=== PATIENT | female | born 1980 | race Caucasian/White ===

== ENCOUNTER 2025-07-31 08:29 | Emergency (ER) | payer OTHER, SELFPAY ==
[2025-07-31 08:42] VITALS: BP 92/62; PULSE 80; RESP 16; TEMP 36.6; O2SAT 97; BMI 16.6
--- NOTE | 2025-07-31 08:53 | EKG_ITS ---
[facility] Test Date: 2025-07-31 Pat Name: YOHANA SOLANO Department: Room: - Gender: Female [place]: : 1980 Requested By: Felix Mclain (AYDIN) Order Number: [id number] Reading MD: Felix Mclain (QUALITY MANAGER) Measurements Intervals [place] Rate: 67 P: 74 [place]: 143 QRS: 74 QRSD: 131 T: 33 QT: 435 QTc: 461 Interpretive Statements SINUS RHYTHM WITH SINUS ARRHYTHMIA POSSIBLE LEFT ATRIAL ENLARGEMENT [-0.1mV P-WAVE IN V1/V2] RIGHT BUNDLE BRANCH BLOCK [120+ ms QRS DURATION, UPRIGHT V1, 40+ ms S IN I/aVL/V4/V5/V6] No previous ECG available for comparison /[id number]/[email or web address]/[id number].pdf
--- NOTE | 2025-07-31 08:53 | XR_ITS ---
Examination: PA lateral chest 2 views TECHNIQUE: Upright PA lateral chest 2 views Date and time: July 31, 2025 0857 hours, comparison January 19, 2024, January 25, 2019 INDICATIONS: Coughing 13 days. FINDINGS: Moderate hyperexpansion Stable 15 mm pulmonary nodule right upper lobe Normal heart size No pneumonia or pulmonary edema IMPRESSION: No interval pneumonia or pulmonary edema
--- NOTE | 2025-07-31 08:55 | EDRME_ITS ---
Rapid Medical Screening Exam [facility] Arrival date/time: 07/31/25 08:29 45-year-old female with history of RA presents to the emergency department today for complaints of cough, congestion and shortness of breath as well as generalized fatigue and weakness. Patient reports currently taking course of antibiotic Chief Complaint: Flu Like Symptoms Vital signs: Vital Signs Temperature 97.8 F 07/31/25 08:42 Pulse Rate 80 07/31/25 08:42 Respiratory Rate 16 07/31/25 08:42 Blood Pressure 92/62 07/31/25 08:42 Pulse Oximetry (%) 97 07/31/25 08:42 Oxygen Delivery Method Room Air 07/31/25 08:42
[2025-07-31 09:13] VITALS: BP 109/67; PULSE 60; RESP 17; TEMP 36.8; O2SAT 99
[2025-07-31 09:30] LABS: Basophils # (Auto) 0.1 Thou/mm3 (0.0-0.2); Basophils % (Auto) 1 % (0-2.5); Eosinophils # (Auto) 0.0 Thou/mm3 (0.0-0.5); Eosinophils % (Auto) 0 % (0-10); Hematocrit 40.0 % (36.0-46.0); Hemoglobin 14.0 g/dL (12.0-16.0); Immature Granulocytes Auto 0.06 Thou/mm3 (0.00-0.00); Lymphocytes # (Auto) 2.7 Thou/mm3 (1.0-4.8); Lymphocytes % (Auto) 22 % (10-50); Mean Corpuscular HGB Conc 35.0 g/dl (31.0-37.0); Mean Corpuscular Hemoglobin 31.1 pg (25.0-35.0); Mean Corpuscular Volume 89 fL (80-100); Monocytes # (Auto) 0.7 Thou/mm3 (0.0-0.8); Monocytes % (Auto) 6 % (0-12); Neutrophils # (Auto) 8.8 Thou/mm3 (1.8-7.7); Neutrophils % (Auto) 71 % (37-80); Nucleated Red Blood Cell # 0.00 Thou/mm3 (0.00-0.00); Nucleated Red Blood Cell % 0 /100 WBC (0); Platelet Count 281 Thou/mm3 (140-440); RDW Standard Deviation 38.9 fL (36.4-46.3); Red Blood Count 4.50 Miln/mm3 (4.00-5.20); White Blood Count 12.3 Thou/mm3 (3.6-11.0)
[2025-07-31 09:31] LABS: Strep A Rapid Negative (Negative)
[2025-07-31 09:32] LABS: Collection Type, Urine Clean Catch
[2025-07-31 09:38] LABS: Bilirubin,Urine Negative (Negative); Blood,Urine 1+ (Negative); Clarity,Urine Clear (Clear/Hazy); Color,Urine Yellow (Lt Yel-Yel); Culture Indicated,Urine Not Indicated; Glucose, Urine Negative (Negative); Ketones,Urine Negative (Negative); Leukocyte Esterase,Urine Negative (Negative); Nitrite,Urine Negative (Negative); PH,Urine 6.0 (5.0-7.0); Protein,Urine 1+ (Neg - Trace); RBC,Urine 4 /hpf (0-3); Specific Gravity,Urine 1.023 (1.001-1.035); Squamous Epithelial Cell,Urine 5 /hpf (0-5); Urobilinogen,Urine Negative mg/dL (0.0-1.0); WBC,Urine 1 /hpf (0-5)
[2025-07-31 09:42] LABS: HCG Qualitative,Urine Negative
--- NOTE | 2025-07-31 09:49 | PD.EDURI ---
Upper Respiratory Inf. RME/HPI General Chief Complaint: Flu Like Symptoms Stated Complaint: FLU LIKE SYMPTOMS Time Seen by Provider: 07/31/25 09:38 Arrival date/time: 07/31/25 08:29 RME / HPI RME / HPI Narrative: 07/31/25 08:29 45-year-old female with history of RA presents to the emergency department today for complaints of cough, congestion and shortness of breath as well as generalized fatigue and weakness. Patient reports currently taking course of antibiotic DR. SCHWARZ MAIN ED EVALUATION 45 year old female with history of rheumatoid arthritis presents to the ED for evaluation of URI symptoms beginning 12 days ago. Reportedly she first started with a fever, chills, sore throat, and itching between the ears which she took Claritin and Tylenol Cold for. Symptoms did not improve and now associated with shortness of breath. Says she consulted with her PCP 3 days ago who started her on a Zpack, 5-day course of 20mg Prednisone, and inhaler. However, states her symptoms remain unchanged. Current daily medications include: Hydroxychloroquine, Tizanidine, Gabapentin, stopped Lor over a year ago. Related Data Home Medications ?Medication ?Instructions ?Recorded ?Confirmed hydroxychloroquine [Plaquenil] 400 mg PO DAILY 12/09/19 12/12/19 pregabalin [Lyrica] 100 mg PO BID 12/09/19 12/12/19 tizanidine 4 mg PO BID 12/09/19 12/12/19 Previous Rx's ?Medication ?Instructions ?Recorded doxycycline monohydrate 100 mg 100 mg PO BID #10 caps 07/31/25 capsule mometasone 50 mcg/actuation nasal 2 spray intranasal QDAY #17 grams 07/31/25 spray (Allergy Nasal (mometasone)) Allergies Allergy/AdvReac Type Severity Reaction Status Date / Time amoxicillin Allergy Rash Verified 01/19/24 09:39 clavulanic acid (From Allergy Rash Verified 01/19/24 09:39 Augmentin) codeine Allergy nausea Verified 01/19/24 09:39 vomiting prednisone Allergy makes my Verified 01/19/24 09:39 body feel bad all over Review of Systems Review of Systems Systems Reviewed: All systems reviewed, normal except as documented Past Medical History Past Medical History MUSCULOSKELETAL: Positive Rheumatoid Arthritis OTHER HISTORY: Positive Autoimmune Disease (RHEUMATOID ARTHRITIS) Social History SMOKING STATUS: Current every day smoker SUBSTANCE USE: does not use ED Exam Narrative Physical exam: GENERAL APPEARANCE: alert and oriented x 4, well-developed, pale, thin, HEENT: Normocephalic, atraumatic; pupils equal, round, reactive to light; EOMI; mucous membranes pink, moist; oropharynx clear; clear rhinorrhea R>L, serous effusion bilateral TM NECK: Supple LUNGS: CTABL; no wheezes, no rales, no rhonchi HEART: Regular rate, regular rhythm; normal S1, S2; no murmurs ABDOMEN: non distended; normal BS; soft, no tenderness, no guarding, no rebound; no masses, no organomegaly, no hernia BACK: no CVA tenderness EXTREMITIES: atraumatic; no edema NEUROLOGIC: awake; alert and oriented x4; cranial nerves II-XII grossly intact; no focal sensory or motor deficits PSYCHIATRIC: appropriate mood and affect SKIN: warm, dry, normal color; no rashes Course Quality Measures none Orders Category Date Time Status Bedside COVID-19 Antigen Test NOW Care 07/31/25 08:53 Active Bedside Influenza A&B Antigen Test NOW Care 07/31/25 08:53 Completed EKG (ED ONLY) *Do not use* NOW Care 07/31/25 08:[address] chest wo con Stat Exams 07/31/25 10:59 Completed EKG (ED Only) Stat Exams 07/31/25 08:53 Draft XR chest 2V Stat Exams 07/31/25 08:53 Completed BNP [B-Type Natriuretic Peptide] Stat Lab 07/31/25 09:20 Completed CBC Stat Lab 07/31/25 09:20 Completed CMP [Comprehensive Metabolic Panel] Stat Lab 07/31/25 09:20 Completed D-Dimer Stat Lab 07/31/25 09:20 Completed HCG Qualitative,Urine Stat Lab 07/31/25 09:26 Completed Strep A Rapid Stat Lab 07/31/25 08:59 Completed Troponin I Stat Lab 07/31/25 09:20 Completed UA, C/S IF [Urinalysis, C/S if Indicated] Stat Lab 07/31/25 09:26 Completed Doxycycline [Vibramycin] Med 07/31/25 10:02 Discontinued 100 mg PO X1 ONE lorataDINE [Claritin] Med 07/31/25 10:02 Discontinued 10 mg PO X1 ONE Vital Signs Vital signs: Vital Signs Temperature 97.8 F 07/31/25 08:42 Pulse Rate 80 07/31/25 08:42 Respiratory Rate 16 07/31/25 08:42 Blood Pressure 92/62 07/31/25 08:42 Pulse Oximetry (%) 97 07/31/25 08:42 Oxygen Delivery Method Room Air 07/31/25 08:42 Pulse ox is 97% on room air which is adequate. Upper Respiratory Infection MDM Narrative MDM Narrative:: Jing Guillen am scribing for and in the presence of Dr. Schwarz. Patient data External records reviewed:: [facility] previous records (I reviewed ED visit on 01/19/2024 ) Clinical information provided by:: patient Social determinants that could affect healthcare access:: none Patient has the following chronic illnesses:: rheumatoid arthritis How is presenting disease/condition affected by chronic disease/condition?: uneffected by Evaluation data The following diagnostics were reviewed and interpreted by me:: lab results, radiology exam(s) and EKG tracing(s) (EKG @ 09:21 AM. NSR, rate 67, right bundle branch block. ) Lab and/or radiology exams considered but not ordered:: None Interpretation Summary: Ordering Physician: Chemo HUGHES)Felix NP Date of Service: 07/31/25 Procedure(s): XR chest 2V Accession Number(s): [id number] cc: Chemo HUGHES),Felix PERRIN; Mauro Flores MD; Cyrus Mayo MD~ Examination: PA lateral chest 2 views TECHNIQUE: Upright PA lateral chest 2 views Date and time: July 31, 2025 0857 hours, comparison January 19, 2024, January 25, 2019 INDICATIONS: Coughing 13 days. FINDINGS: Moderate hyperexpansion Stable 15 mm pulmonary nodule right upper lobe Normal heart size No pneumonia or pulmonary edema IMPRESSION: No interval pneumonia or pulmonary edema Dictated By: Mauro Flores MD Signed By: <Electronically signed by Mauro Flores MD in [place]> 07/31/25 0936 Ordering Physician: Vandana Schwarz MD Date of Service: 07/31/25 Procedure(s): CT chest wo con Accession Number(s): [id number] cc: Mauro Flores MD; Cyrus Mayo MD; Vandana Schwarz MD~ Examination: CT chest, without intravenous contrast. Sagittal and coronal 2-D reconstructions. Exam date and time: July 31, 2025 1150 hours, comparison March 14, 2024 INDICATIONS: Coughing today, history pulmonary nodules on CT chest March 14, 2024 CTDI:vol (mGy) 6.01 DLP: (mGycm) 239 Technique: Multiple 3.0 mm axial sections of the chest to been obtained. Bone and lung density settings are obtained. Sagittal and coronal 2-D reconstructions have been obtained. Low dose protocols were performed. One or more of the following dose reduction techniques were used; automated exposure control, adjustment of the mA and/or KV according to patient size, use of iterative reconstruction technique. Findings: 6 mm left thyroid nodule No thoracic aortic aneurysm dilatation Pulmonary artery segments are not enlarged. No paratracheal tracheobronchial or bronchopulmonary adenopathy. Stable 15 mm pulmonary nodule right upper lobe No new pulmonary nodules No pneumonia or pulmonary edema No visualized liver or splenic lesion Contracted gallbladder Kidneys partially visualized no hydronephrosis IMPRESSION: Stable 15 mm pulmonary nodule right upper lobe No pneumonia or pulmonary edema Dictated By: Mauro Flores MD Signed By: <Electronically signed by Mauro Flores MD in [place]> 07/31/25 1221 Medications / Prescriptions Medications or Prescriptions considered but not ordered:: None Medication administrations:: Medication Administration History Discontinued Medications Doxycycline Hyclate (Doxycycline 100 Mg Tablet) 100 mg PO X1 ONE Stop: 07/31/25 10:03 Last Admin: 07/31/25 10:17 Dose: 100 mg Documented By: PRIMITIVO Loratadine (Loratadine 10 Mg Tablet) 10 mg PO X1 ONE Stop: 07/31/25 10:03 Last Admin: 07/31/25 10:17 Dose: 10 mg Documented By: PRIMITIVO See above Consultations Consultation(s) initiated? (list below): No Diagnosis Upper Respiratory Differential Diagnosis: upper respiratory infection, viral infection, bronchitis, influenza and other (pneumonia ) Most likely diagnosis given after review of the tests above:: URI Allergic rhinitis Thyroid nodule Incidental lung nodule Admission Indicated Admission indicated?: not indicated Admission Request Was there a request for admission?: No Disposition Plan Disposition Plan: Discharge Discharge Attestation Discharge Attestation: The patient and all family members were given an opportunity to ask questions and understood the discharge instructions. Discharge instructions specifically effects, indications for sooner follow up or return to the emergency department, and the expected course of current diagnosis. Patient condition: Stable Discharge Plan Plan Patient Disposition: HOME (Self Care) Prescriptions/Referrals Prescriptions/Med Rec: New doxycycline monohydrate 100 mg capsule 100 mg PO BID Qty: 10 0RF mometasone [Allergy Nasal (mometasone)] 50 mcg/actuation spray,non-aerosol 2 spray intranasal QDAY Qty: 17 0RF Rx Instructions: administer into each nostril No Action pregabalin [Lyrica] 100 mg PO BID hydroxychloroquine [Plaquenil] 400 mg PO DAILY tizanidine 4 mg PO BID Referrals: Cyrus Mayo MD [Primary Care Provider] - In 1 week Problem List Clinical Impression: Upper respiratory infection, Allergic rhinitis, Thyroid nodule, Incidental lung nodule Patient/Caregiver Discharge Instructions Education Materials: Common Thyroid Problems, Nasal Allergies: Related Problems, Preventing Common Respiratory ..., ED Pulmonary Nodule, Solitary Additional Instructions: The pulmonary nodule seen on your CT scan has been stable since your previous CT scan from 03/2024. Follow up with your doctor to continue monitoring. A thyroid nodule was also noted. Follow up with your doctor for continued management and possible ultrasound. Print Language: Emir[place] Stand Alone Forms: Callie Award Info., Patient Portal Info Letter
[2025-07-31 09:51] LABS: Alanine Aminotransferase 28 U/L (10-49); Albumin, Serum 4.7 gm/dL (3.5-5.0); Albumin/Globulin Ratio 2.2 (1.2-2.2); Alkaline Phosphatase 90 U/L (46-116); Anion Gap 10 (7-16); Aspartate Amino Transferase 26 U/L (0-34); BUN/Creatinine Ratio 14 Ratio (12-20); Bilirubin,Total 0.4 mg/dL (0.3-1.2); Blood Urea Nitrogen 11 mg/dL (9-23); Calcium 9.7 mg/dL (8.3-10.6); Calcium (Corrected) 9.7 mg/dL (8.5-10.1); Carbon Dioxide 27.1 mMol/L (20.0-31.0); Chloride 104 mMol/L (98-107); Creatinine (Component) 0.8 mg/dL (0.6-1.3); Estimated Creatinine Clearance 68.8 mL/min (>60); Globulin 2.1 gm/dL (2.3-3.5); Glucose 91 mg/dL (74-106); Osmolality,Calculated 280 (275-295); Potassium 3.7 mMol/L (3.4-5.1); Sodium 141 mMol/L (136-145); Total Protein 6.8 gm/dL (5.7-8.2); Troponin I < 0.020 ng/mL (0.0-0.045); eGFR > 60 See Note
[2025-07-31] MEDS: DOXYCYCLINE 100 MG TABLET PO (10:17)
[2025-07-31 10:52] LABS: B-Type Natriuretic Peptide 26 pg/mL (0-100); D-Dimer < 250 ng/mL (<600)
--- NOTE | 2025-07-31 10:59 | XR_ITS ---
Examination: CT chest, without intravenous contrast. Sagittal and coronal 2-D reconstructions. Exam date and time: July 31, 2025 1150 hours, comparison March 14, 2024 INDICATIONS: Coughing today, history pulmonary nodules on CT chest March 14, 2024 CTDI:vol (mGy) 6.01 DLP: (mGycm) 239 Technique: Multiple 3.0 mm axial sections of the chest to been obtained. Bone and lung density settings are obtained. Sagittal and coronal 2-D reconstructions have been obtained. Low dose protocols were performed. One or more of the following dose reduction techniques were used; automated exposure control, adjustment of the mA and/or KV according to patient size, use of iterative reconstruction technique. Findings: 6 mm left thyroid nodule No thoracic aortic aneurysm dilatation Pulmonary artery segments are not enlarged. No paratracheal tracheobronchial or bronchopulmonary adenopathy. Stable 15 mm pulmonary nodule right upper lobe No new pulmonary nodules No pneumonia or pulmonary edema No visualized liver or splenic lesion Contracted gallbladder Kidneys partially visualized no hydronephrosis IMPRESSION: Stable 15 mm pulmonary nodule right upper lobe No pneumonia or pulmonary edema
[2025-07-31 11:06] VITALS: BP 100/70; PULSE 61; RESP 18; TEMP 36.8; O2SAT 99
[2025-07-31 14:04] VITALS: BP 104/72; PULSE 67; RESP 14; TEMP 36.6; O2SAT 100
== END 2025-07-31 14:11 | disposition home or self-care (01) ==
PROVIDERS: Nurse Practitioner Primary Care; Emergency Provider Emergency Medicine; PCP Family Medicine
DX: J06.9 Acute upper respiratory infection, unspecified (principal); J30.9 Allergic rhinitis, unspecified; E04.1 Nontoxic single thyroid nodule; R91.1 Solitary pulmonary nodule
CPT/HCPCS: 36415; 71046; 71250; 80053; 81001; 81025; 83880; 84484; 85025; 85379; 87400; 87651; 87811; 93005; 99284; A9270